=== PATIENT | male | born 1955 | race Caucasian/White ===

== ENCOUNTER 2018-05-20 17:46 | Observation (INO) | payer BC ==
[2018-05-20] MEDS ORDERED: Adenosine 6 MG/2 ML SDV ONE (18:05)
[2018-05-20 18:19] LABS: ANION GAP 18.4
--- NOTE | 2018-05-20 18:35 | EDM.PDOC ---
<Arvin Kinney - Last Filed: 05/20/18 18:35> ED HPI GENERAL MEDICAL PROBLEM - General Stated Complaint: HEART BEATING FAST [id number] Time Seen by Provider: 05/20/18 19:20 Left Chest Pain Score (Numeric/FACES): 0 - Related Data Allergies Allergy/AdvReac Type Severity Reaction Status Date / Time No Known Allergies Allergy Verified 05/20/18 18:00 Home Meds: Home Meds Metoprolol Succinate [Toprol XL] 50 mg PO DAILY 04/16/14 [History] Olmesartan Medoxomil 20 mg PO DAILY 05/20/18 [History] amLODIPine [Norvasc] 5 mg PO DAILY 05/20/18 [History] Past Medical History HEENT History: Reports: None Cardiovascular History: Reports: Heart Murmur, Hypertension Respiratory History: Reports: None Gastrointestinal History: Reports: None Genitourinary History: Reports: None Musculoskeletal History: Reports: None Neurological History: Reports: None Psychiatric History: Reports: None Endocrine/Metabolic History: Reports: None Hematologic History: Reports: None Immunologic History: Reports: None Oncologic (Cancer) History: Reports: None Dermatologic History: Reports: None - Infectious Disease History Infectious Disease History: Reports: None - Past Surgical History Head Surgeries/Procedures: Reports: None Social & Family History - Family History Family Medical History: Noncontributory - Tobacco Use Smoking Status *Q: Never Smoker Second Hand Smoke Exposure: No - Caffeine Use Caffeine Use: Reports: None - Alcohol Use Days Per Week of Alcohol Use: 7 Number of Drinks Per Day: 3 Total Drinks Per Week: 21 - Recreational Drug Use Recreational Drug Use: No Course - Vital Signs Last Recorded V/S: Last Vital Signs Temp 36.8 C 05/20/18 18:04 Pulse 170 H 05/20/18 18:04 Resp 18 05/20/18 18:04 BP 157/112 H 05/20/18 18:04 Pulse Ox 100 05/20/18 18:04 - Orders/Labs/Meds Orders: Active Orders 24 hr Category Date Time Status EKG Documentation Completion [RC] URGENT Care 05/20/18 17:56 Active Labs: Laboratory Tests 05/20/18 05/20/18 Range/Units 17:55 17:55 WBC 14.8 H (5.0-10.0) 10^3/uL RBC 5.01 (4.6-6.2) 10^6/uL Hgb 15.4 (14.0-18.0) g/dL Hct 44.2 (40.0-54.0) % MCV 88.2 (80-100) fL MCH 30.7 (27.0-34.0) pg MCHC 34.8 (33.0-35.0) g/dL Plt Count 248 (150-450) 10^3/uL Neut % (Auto) 66.8 (42.2-75.2) % Lymph % (Auto) 23.3 (20.5-50.1) % [place] % (Auto) 8.4 H (2-8) % Eos % (Auto) 1.2 (1.0-3.0) % Baso % (Auto) 0.3 (0.0-1.0) % Sodium 138 (135-145) mmol/L Potassium 3.4 L (3.6-5.0) mmol/L Chloride 102 (101-111) mmol/L Carbon Dioxide 21.0 (21.0-31.0) mmol/L Anion Gap 18.4 BUN 28 H (7-18) mg/dL Creatinine 1.4 H (0.6-1.3) mg/dL Est Cr Clr Drug Dosing 52.46 mL/min Estimated GFR (MDRD) 52 BUN/Creatinine Ratio 20.00 Glucose 149 H (74-105) mg/dL Calcium 9.5 (8.4-10.2) mg/dl Total Bilirubin 0.9 (0.2-1.0) mg/dL AST 34 (10-42) IU/L ALT 43 (10-60) IU/L Alkaline Phosphatase 103 (42-121) IU/L Troponin I 0.03 H* (0.00-0.02) ng/ml Total Protein 7.9 (6.7-8.2) g/dl Albumin 4.7 (3.2-5.5) g/dl Globulin 3.2 Albumin/Globulin Ratio 1.47 Meds: Medications Discontinued Medications Generic Name Dose Route Start Last Admin Trade Name Freq PRN Reason Stop Dose Admin Adenosine Confirm 05/20/18 18:05 05/20/18 18:10 Adenocard Administered 05/20/18 18:06 6 mg Dose Administration 6 mg .ROUTE .STK-MED ONE Departure - Departure Disposition: Refer to Observation Clinical Impression: Sustained SVT, Elevated troponin I level Forms: ED Department Discharge <Boni Mayer - Last Filed: 05/20/18 19:25> ED HPI GENERAL MEDICAL PROBLEM - General Source of Information: Reports: Patient History Limitations: Reports: No Limitations - History of Present Illness INITIAL COMMENTS - FREE TEXT/NARRATIVE: states sudden onset rapid heart @ 4:30pm denies associated CP/SOB/dizz. had same many years ago was Tx @ [facility] by cardio taking metoprolo. ED ROS GENERAL - Review of Systems Review Of Systems: ROS reveals no pertinent complaints other than HPI. ED EXAM, GENERAL - Physical Exam Exam: See Below Exam Limited By: No Limitations General Appearance: Alert, WD/WN, Anxious, Mild Distress, Moderate Distress, Other Ears: Hearing Grossly Normal Throat/Mouth: Normal Voice, No Airway Compromise Head: Atraumatic Neck: Non-Tender, Full Range of Motion Respiratory/Chest: No Respiratory Distress, Lungs Clear, Normal Breath Sounds Cardiovascular: Tachycardia GI/Abdominal: Soft, Non-Tender Neurological: Alert, Oriented, Normal Cognition, Normal Gait, No Motor/Sensory Deficits Psychiatric: Anxious Skin Exam: Warm, Dry, Normal Color Lymphatic: No Adenopathy Course - Re-Assessments/Exams Free Text/Narrative Re-Assessment/Exam: 05/20/18 19:[address] Sánchez who kindly admitted pt for observation. pt feeling fine presently. Departure - Departure Time of Disposition: 19:25 Condition: Good
[2018-05-20] MEDS ORDERED: Ondansetron 4 MG Tab.DIS PO PRN (20:27)
[2018-05-20] MEDS ORDERED: Acetaminophen 325 MG Tab PO PRN (20:27)
--- NOTE | 2018-05-20 20:40 | PCM.HP ---
H&P History of Present Illness - General Date of Service: 05/20/18 Admit Problem/Dx: Admission Diagnosis/Problem Admission Diagnosis/Problem Supraventricular tachycardia Source of Information: Patient, Provider History Limitations: Reports: No Limitations - History of Present Illness Initial Comments - Free Text/Narative: Mr. Gresham is a 62 y.o male [facility] medical history significant for SVT, HTN, dyslipidemia, impaired fasting glucose, West Nile virus infection, Aortic valve stenosis, and shoulder injury who presented to the ED with complaints of his heart racing. 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 He reports that he typically takes his Toprol in the morning and his norvasc and ARB in the evening but last night he forgot to take his medications so this morning he skipped his Toprol and took the amlodipine and olmesartan. He denies any significant stressors. Drinks 2 drinks every night but can sometimes have up to 4 drinks of alcohol. Denies tobacco or illicit drug use. He denies any recent travel. Reports that he had viral URI about 2 weeks ago and was coughing for about a week but that has resolved and he now has only sniffles. Denies any long distance travel. He denies fevers, chills, shortness of breath, chest pain, nausea, vomiting, LH , abdominal pain, dysuria, edema, or any other symptoms. Left Chest Pain Score (Numeric/FACES): 0 - Related Data Allergies/Adverse Reactions: Allergies Allergy/AdvReac Type Severity Reaction Status Date / Time No Known Allergies Allergy Verified 05/20/18 18:00 Home Medications: Home Meds Metoprolol Succinate [Toprol XL] 50 mg PO DAILY 04/16/14 [History] Olmesartan Medoxomil 20 mg PO DAILY 05/20/18 [History] amLODIPine [Norvasc] 5 mg PO DAILY 05/20/18 [History] Past Medical History HEENT History: Reports: None Cardiovascular History: Reports: Heart Murmur, Hypertension Respiratory History: Reports: None Gastrointestinal History: Reports: None Genitourinary History: Reports: None Musculoskeletal History: Reports: None Neurological History: Reports: None Psychiatric History: Reports: None Endocrine/Metabolic History: Reports: None Hematologic History: Reports: None Immunologic History: Reports: None Oncologic (Cancer) History: Reports: None Dermatologic History: Reports: None - Infectious Disease History Infectious Disease History: Reports: None - Past Surgical History Head Surgeries/Procedures: Reports: None Social & Family History - Family History Family Medical History: Noncontributory - Tobacco Use Smoking Status *Q: Never Smoker Second Hand Smoke Exposure: No - Caffeine Use Caffeine Use: Reports: Coffee - Alcohol Use Days Per Week of Alcohol Use: 7 Number of Drinks Per Day: 2 Total Drinks Per Week: 14 Date of Last Drink: 05/19/18 Time of Last Drink: 21:30 - Recreational Drug Use Recreational Drug Use: No H&P Review of Systems - Review of Systems: Review Of Systems: ROS reveals no pertinent complaints other than HPI. Exam - Exam Exam: See Below - Vital Signs Vital Signs: Last Vital Signs Temp 98.2 F 05/20/18 18:04 Pulse 170 H 05/20/18 18:04 Resp 18 05/20/18 18:04 BP 157/112 H 05/20/18 18:04 Pulse Ox 100 05/20/18 18:04 Weight: 190 lb 6.4 oz - Exam General: Alert, Oriented HEENT: Conjunctiva Clear, EOMI, Hearing Intact, Mucosa Moist & [place], Normal Nasal Septum, Pupils Equal, Pupils Reactive Neck: Supple, Trachea Midline Lungs: Clear to Auscultation, Normal Respiratory Effort Cardiovascular: Regular Rate, Regular Rhythm GI/Abdominal Exam: Normal Bowel Sounds, Non-Tender, No Distention Extremities: Normal Inspection, Non-Tender, No Pedal Edema Peripheral Pulses: 2+: Radial (L), Radial (R), Dorsalis Pedis (L), Dorsalis Pedis (R) Skin: Warm, Dry, Intact Neuro Extensive - Mental Status: Alert, Oriented x3, Normal Mood/Affect, Normal Cognition Psychiatric: Alert, Normal Affect, Normal Mood - Patient Data Lab Results Last 24 hrs: Laboratory Results - last 24 hr 05/20/18 05/20/18 Range/Units 17:55 17:55 WBC 14.8 H (5.0-10.0) 10^3/uL RBC 5.01 (4.6-6.2) 10^6/uL Hgb 15.4 (14.0-18.0) g/dL Hct 44.2 (40.0-54.0) % MCV 88.2 (80-100) fL MCH 30.7 (27.0-34.0) pg MCHC 34.8 (33.0-35.0) g/dL Plt Count 248 (150-450) 10^3/uL Neut % (Auto) 66.8 (42.2-75.2) % Lymph % (Auto) 23.3 (20.5-50.1) % [place] % (Auto) 8.4 H (2-8) % Eos % (Auto) 1.2 (1.0-3.0) % Baso % (Auto) 0.3 (0.0-1.0) % Sodium 138 (135-145) mmol/L Potassium 3.4 L (3.6-5.0) mmol/L Chloride 102 (101-111) mmol/L Carbon Dioxide 21.0 (21.0-31.0) mmol/L Anion Gap 18.4 BUN 28 H (7-18) mg/dL Creatinine 1.4 H (0.6-1.3) mg/dL Est Cr Clr Drug Dosing 52.46 mL/min Estimated GFR (MDRD) 52 BUN/Creatinine Ratio 20.00 Glucose 149 H (74-105) mg/dL Calcium 9.5 (8.4-10.2) mg/dl Total Bilirubin 0.9 (0.2-1.0) mg/dL AST 34 (10-42) IU/L ALT 43 (10-60) IU/L Alkaline Phosphatase 103 (42-121) IU/L Troponin I 0.03 H* (0.00-0.02) ng/ml Total Protein 7.9 (6.7-8.2) g/dl Albumin 4.7 (3.2-5.5) g/dl Globulin 3.2 Albumin/Globulin Ratio 1.47 Result Diagrams: 05/20/18 17:55 05/20/18 17:55 - Problem List (1) Hypertension SNOMED Code(s): 21722923 ICD Code: I10 - ESSENTIAL (PRIMARY) HYPERTENSION Status: Acute Current Visit: Yes (2) Cardiac murmur SNOMED Code(s): 02911499 ICD Code: R01.1 - CARDIAC MURMUR, UNSPECIFIED Status: Acute Current Visit : Yes (3) Alcohol abuse SNOMED Code(s): 19027724 ICD Code: F10.10 - ALCOHOL ABUSE, UNCOMPLICATED Status: Acute Current Visit: Yes (4) Dyslipidemia SNOMED Code(s): 421451570 ICD Code: E78.5 - HYPERLIPIDEMIA, UNSPECIFIED Status: Acute Current Visit : Yes (5) Elevated troponin I level SNOMED Code(s): 326841975 ICD Code: R74.8 - ABNORMAL LEVELS OF OTHER SERUM ENZYMES Status: Acute Current Visit: No (6) Sustained SVT SNOMED Code(s): 0502903 ICD Code: I47.1 - SUPRAVENTRICULAR TACHYCARDIA Status: Acute Current Visit: No Problem List Initiated/Reviewed/Updated: Yes Orders Last 24hrs: Active Orders 24 hr Category Date Time Status Patient Status [ADT] Routine ADT 05/20/18 20:27 Ordered Cardiac Monitoring [RC] CONTINUOUS Care 05/20/18 20:28 Ordered EKG Documentation Completion [RC] URGENT Care 05/20/18 17:56 Active Oxygen Therapy [RC] PRN Care 05/20/18 20:27 Ordered Up ad Gayle [RC] ASDIRECTED Care 05/20/18 20:27 Ordered VTE/DVT Education [RC] PER UNIT ROUTINE Care 05/20/18 20:27 Ordered Vital Signs [RC] Q4H Care 05/20/18 20:27 Ordered Nothing per Oral Now Diet [DIET] Diet 05/20/18 Dinner Ordered CBC W/O DIFF,HEMOGRAM [HEME] AM Lab 05/21/18 05:11 Ordered TROPONIN I [CHEM] Q6H Lab 05/21/18 00:00 Ordered TROPONIN I [CHEM] Q6H Lab 05/21/18 06:00 Ordered Acetaminophen [Tylenol] Med 05/20/18 20:27 Ordered 650 mg PO Q4H PRN Heparin Sodium Med 05/20/18 22:00 Ordered 5,000 units SUBCUT Q8HR Ondansetron [Zofran ODT] Med 05/20/18 20:27 Ordered 4 mg PO Q4H PRN Resuscitation Status Routine Resus Stat 05/20/18 20:27 Ordered Medication Orders Acetaminophen (Tylenol) 650 mg PO Q4H PRN PRN Reason: Pain Heparin Sodium (Porcine) (Heparin Sodium) 5,000 units SUBCUT Q8HR DICK Ondansetron HCl (Zofran Odt) 4 mg PO Q4H PRN PRN Reason: nausea, able to take PO Assessment/Plan Comment:: #SVT: EKG showed SVT per ED provider. Tele strips from ED shows ST with repolarization abnormalities. Likely multifactorial but most probably due to skipping his Toprol, which he missed this morning. - Monitor on telemetry. - No in sinus with rate of 70s on tele #Elevated troponin: Trop of 0.03. Likely demand ischemia - Repeat troponin x3. - No Echo available so if trending up, will have to transfer out. -Lipid panel with midnight troponin - NPO, if repeat troponin is not trending up, start on cardiac diet. # HTN: - Resume home medications #Alcohol abuse: - counseled not to have more than 2 drinks in a day. #Systolic murmur: likely from aortic stenosis. - Outpatient follow up echocardiogram. DVT prophylaxis with heparin
[2018-05-20] MEDS ORDERED: Sodium Chloride 0.9% 10 ML Syringe FLUSH PRN (21:06)
[2018-05-20] MEDS ORDERED: Heparin Sodium 5,000 Units/ML Vial SUBCUT SCH (22:00)
[2018-05-21] MEDS ORDERED: Clopidogrel 75 MG Tab PO ONE (02:14)
[2018-05-21] MEDS ORDERED: Aspirin 325 MG Tab.EC PO ONE (02:14)
[2018-05-21] MEDS ORDERED: Heparin Sodium/0.45% NaCl 25,000 UNITS/500 ML BAG IV SCH (02:15)
[2018-05-21] MEDS ORDERED: Heparin Sodium/0.45% NaCl 500 ML ONE (02:18)
--- NOTE | 2018-05-21 02:23 | PCM.DCSUM1 ---
Discharge Summary - Hospital Course Free Text/Narrative:: Mr. Gresham is a 62 y.o male [facility] medical history significant for SVT, HTN, dyslipidemia, impaired fasting glucose, West Nile virus infection, Aortic valve stenosis, and shoulder injury who presented to the ED with complaints of his heart racing. 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 He had skipped his troprol dose in the morning. HR was in the 170s. EKG showed SVT. Troponin was 0.03 (ULN is 0.02). He denied Chest pain or shortness of breath or any anginal symptoms. He was monitored on telemetry. Repeat troponin came back positive at 0.13. EKG showed sinus rhythm with subtle ST elevation, probable repolarization abnormalities from significant left ventricular hypertrophy. He was started on heparin drip, given 325 mg of ASA, and given plavix load of 300 mg. He was transferred to [facility] for further management. HPI Initial Comments: Mr. Gresham is a 62 y.o male [facility] medical history significant for SVT, HTN, dyslipidemia, impaired fasting glucose, West Nile virus infection, Aortic valve stenosis, and shoulder injury who presented to the ED with complaints of his heart racing. 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 He reports that he typically takes his Toprol in the morning and his norvasc and ARB in the evening but last night he forgot to take his medications so this morning he skipped his Toprol and took the amlodipine and olmesartan. He denies any significant stressors. Drinks 2 drinks every night but can sometimes have up to 4 drinks of alcohol. Denies tobacco or illicit drug use. He denies any recent travel. Reports that he had viral URI about 2 weeks ago and was coughing for about a week but that has resolved and he now has only sniffles. Denies any long distance travel. He denies fevers, chills, shortness of breath, chest pain, nausea, vomiting, LH , abdominal pain, dysuria, edema, or any other symptoms. Diagnosis: Stroke: No - Discharge Data Discharge Date: 05/21/18 Discharge Disposition: DC/Tfer to Acute Hospital 02 Condition: Stable - Discharge Diagnosis/Problem(s) (1) Hypertension SNOMED Code(s): 05080743 ICD Code: I10 - ESSENTIAL (PRIMARY) HYPERTENSION Status: Acute Current Visit: Yes (2) Cardiac murmur SNOMED Code(s): 40963799 ICD Code: R01.1 - CARDIAC MURMUR, UNSPECIFIED Status: Acute Current Visit : Yes (3) Alcohol abuse SNOMED Code(s): 71292012 ICD Code: F10.10 - ALCOHOL ABUSE, UNCOMPLICATED Status: Acute Current Visit: Yes (4) Dyslipidemia SNOMED Code(s): 780783118 ICD Code: E78.5 - HYPERLIPIDEMIA, UNSPECIFIED Status: Acute Current Visit : Yes (5) Elevated troponin I level SNOMED Code(s): 832166331 ICD Code: R74.8 - ABNORMAL LEVELS OF OTHER SERUM ENZYMES Status: Acute Current Visit: No (6) Sustained SVT SNOMED Code(s): 3405044 ICD Code: I47.1 - SUPRAVENTRICULAR TACHYCARDIA Status: Acute Current Visit: No - Discharge Plan Home Medications: Home Meds Metoprolol Succinate [Toprol XL] 50 mg PO DAILY 04/16/14 [History] Olmesartan Medoxomil 20 mg PO DAILY 05/20/18 [History] amLODIPine [Norvasc] 5 mg PO DAILY 05/20/18 [History] Heparin Sodium 5,000 units SUBCUT Q8HR vial 05/21/18 [Rx] Ondansetron [Zofran ODT] 4 mg PO Q4H PRN tab.dis 05/21/18 [Rx] Forms: ED Department Discharge - Discharge Summary/Plan Comment DC Time >30 min.: Yes - General Info Date of Service: 05/21/18 Admission Dx/Problem (Free Text: Admission Diagnosis/Problem Admission Diagnosis/Problem Supraventricular tachycardia Subjective Update: No acute complaints. Denies chest pain, shortness of breath, or any other symptoms. - Review of Systems General: Reports: No Symptoms HEENT: Reports: No Symptoms Pulmonary: Reports: No Symptoms Cardiovascular: Reports: No Symptoms Gastrointestinal: Reports: No Symptoms Genitourinary: Reports: No Symptoms Musculoskeletal: Reports: No Symptoms Skin: Reports: No Symptoms Neurological: Reports: No Symptoms Psychiatric: Reports: No Symptoms - Patient Data Vitals - Most Recent: Last Vital Signs Temp 98 F 05/20/18 19:41 Pulse 82 05/20/18 19:41 Resp 16 05/20/18 19:41 BP 151/104 H 05/20/18 19:41 Pulse Ox 100 05/20/18 18:04 Weight - Most Recent: 190 lb 6.4 oz Lab Results - Last 24 hrs: Laboratory Results - last 24 hr 05/20/18 05/20/18 05/21/18 Range/Units 17:55 17:55 00:30 WBC 14.8 H (5.0-10.0) 10^3/uL RBC 5.01 (4.6-6.2) 10^6/uL Hgb 15.4 (14.0-18.0) g/dL Hct 44.2 (40.0-54.0) % MCV 88.2 (80-100) fL MCH 30.7 (27.0-34.0) pg MCHC 34.8 (33.0-35.0) g/dL Plt Count 248 (150-450) 10^3/uL Neut % (Auto) 66.8 (42.2-75.2) % Lymph % (Auto) 23.3 (20.5-50.1) % [place] % (Auto) 8.4 H (2-8) % Eos % (Auto) 1.2 (1.0-3.0) % Baso % (Auto) 0.3 (0.0-1.0) % Sodium 138 (135-145) mmol/L Potassium 3.4 L (3.6-5.0) mmol/L Chloride 102 (101-111) mmol/L Carbon Dioxide 21.0 (21.0-31.0) mmol/L Anion Gap 18.4 BUN 28 H (7-18) mg/dL Creatinine 1.4 H (0.6-1.3) mg/dL Est Cr Clr Drug Dosing 52.46 mL/min Estimated GFR (MDRD) 52 BUN/Creatinine Ratio 20.00 Glucose 149 H (74-105) mg/dL Calcium 9.5 (8.4-10.2) mg/dl Total Bilirubin 0.9 (0.2-1.0) mg/dL AST 34 (10-42) IU/L ALT 43 (10-60) IU/L Alkaline Phosphatase 103 (42-121) IU/L Troponin I 0.03 H* 0.13 H* (0.00-0.02) ng/ml Total Protein 7.9 (6.7-8.2) g/dl Albumin 4.7 (3.2-5.5) g/dl Globulin 3.2 Albumin/Globulin Ratio 1.47 Med Orders - Current: Current Medications Acetaminophen (Tylenol) 650 mg PO Q4H PRN PRN Reason: Pain Heparin Sodium (Porcine) (Heparin Sodium) 5,000 units SUBCUT Q8HR DICK Last Admin: 05/20/18 22:10 Dose: 5,000 units Heparin Sodium/Sodium Chloride (Heparin 25,000 Units In 1/2 Ns 500 Ml) 25,000 units in 500 mls @ 20 mls/hr IV TITRATE DICK; Protocol Ondansetron HCl (Zofran Odt) 4 mg PO Q4H PRN PRN Reason: nausea, able to take PO Sodium Chloride (Saline Flush) 10 ml FLUSH ASDIRECTED PRN PRN Reason: Keep Vein Open Last Admin: 05/20/18 22:11 Dose: 10 ml Discontinued Medications Adenosine (Adenocard) Confirm Administered Dose 6 mg .ROUTE .STK-MED ONE Stop: 05/20/18 18:06 Last Admin: 05/20/18 18:10 Dose: 6 mg Aspirin (Ecotrin) 325 mg PO ONETIME ONE Stop: 05/21/18 02:15 Clopidogrel Bisulfate (Plavix) 300 mg PO ONETIME ONE Stop: 05/21/18 02:15 - Exam General: Reports: Alert, Oriented HEENT: Reports: Pupils Equal, Mucous Membr. Moist/[place] Neck: Reports: Supple Lungs: Reports: Clear to Auscultation, Normal Respiratory Effort Cardiovascular: Reports: Regular Rate, Regular Rhythm, Murmurs (IV/ systolic ejection murmur radiating to carotids) GI/Abdominal Exam: Normal Bowel Sounds, Soft, Non-Tender Extremities: Normal Inspection, Non-Tender Skin: Reports: Warm, Dry, Intact Neurological: Reports: No New Focal Deficit Psy/Mental Status: Reports: Alert, Normal Affect, Normal Mood
[2018-05-21] MEDS ORDERED: Heparin Sodium 5,000 Units/ML Vial ONE (02:24)
[2018-05-21] MEDS ORDERED: Heparin Sodium 5,000 Units/ML Vial IV ONE (02:30)
--- NOTE | 2018-05-25 13:42 | EKG ---
05/21/2018 - ZAHRA JERNIGAN - TIME: 2:45 a.m. EKG shows sinus rhythm with heart rate of 66, normal axis, subtle ST elevation in anterolateral leads, left ventricular hypertrophy with repolarization abnormalities with no ST elevation or depression and no T-wave inversions. [facility] /[id number]
--- NOTE | 2018-05-25 13:48 | EKG ---
05/21/2018 - ZAHRA JERNIGAN - TIME: 1.31 a.m. FINDINGS: The EKG shows normal sinus rhythm with a heart rate of 66. Normal axis. Left ventricular hypertrophy by voltage criteria with early repolarization abnormalities. No ST elevation or depression. No T-wave inversions. QTc of 424. [facility] /[id number]
== END 2018-05-21 02:45 ==
LOC: DL.ED 17:46 → DL.MS 19:42 → UNDOADMOB 19:42 → DL.MS 20:27
PROVIDERS: ADMIT Internal Medicine; ATTEND Internal Medicine
DX: I47.1 Supraventricular tachycardia (principal); I10 Essential (primary) hypertension; R01.1 Cardiac murmur, unspecified; F10.10 Alcohol abuse, uncomplicated; E78.5 Hyperlipidemia, unspecified; R74.8 Abnormal levels of other serum enzymes; Z79.899 Other long term (current) drug therapy
CPT/HCPCS: 36415; 80053; 84484; 85025; 93005; 96372; 96374; 96375; 96376; 99285; A9270; G0378; J0153; J1644